=== PATIENT | male | born 1945 | race Caucasian/White ===

== ENCOUNTER 2018-05-10 14:24 | Inpatient (IN) | payer MEDICARE ==
[~2018-05-10] VITALS: Ht 185.4 cm; Wt 73.5 kg
[2018-05-10 15:24] LABS: BASOPHILS % 0.3 % (0.0-1.0); EOSINOPHILS % 0.2 % (0.0-6.0); HEMATOCRIT 45.1 % (38.2-49.6); HEMOGLOBIN 14.7 g/dL (14.0-18.0); LYMPHOCYTES # (AUTO) 1.7 (1.0-3.2); LYMPHOCYTES % 19.4 % (18.0-39.1); MEAN CORPUSCULAR HEMOGLOBIN 29.8 pg (28-32); MEAN CORPUSCULAR HGB CONC 32.6 g/dL (31-35); MEAN CORPUSCULAR VOLUME 91.3 fL (81-99); MONOCYTES # (AUTO) 1.8 (0.2-0.8); NEUTROPHILS # (AUTO) 5.3 (2.1-6.9); NEUTROPHILS % 59.6 % (38.7-80.0); PLATELET COUNT 143 x10e3/uL (140-360); RED BLOOD COUNT 4.94 x10e6/uL (4.3-5.7); RED CELL DISTRIBUTION WIDTH 13.9 % (11.7-14.4)
[2018-05-10 15:30] LABS: INR 1.07; PROTHROMBIN TIME 14.4 seconds (11.9-14.5)
[2018-05-10 15:31] LABS: PARTIAL THROMBOPLASTIN TIME 32.3 seconds (23.8-35.5)
[2018-05-10 15:42] LABS: ALBUMIN 3.6 g/dL (3.5-5.0); ALBUMIN/GLOBULIN RATIO 0.8 (0.8-2.0); ANION GAP 15.6 mmol/L (8-16); CALCIUM 8.7 mg/dL (8.4-10.2); CREATININE, SERUM 1.81 mg/dL (0.72-1.25); POTASSIUM 3.6 mmol/L (3.5-5.1)
[2018-05-10 15:53] LABS: BILIRUBIN,URINE NEGATIVE (NEGATIVE); CLARITY,URINE SL CLOUDY (CLEAR); COLOR,URINE YELLOW (YELLOW); KETONES,URINE NEGATIVE (NEGATIVE); LEUKOCYTE ESTERASE ,URINE NEGATIVE (NEGATIVE); NITRITE,URINE NEGATIVE (NEGATIVE); PROTEIN,URINE DIPSTICK 2+ (NEGATIVE); URINE UROBILINOGEN 1 mg/dL (0.2 - 1)
[2018-05-10] MEDS ORDERED: ASPIRIN325 MG PO (16:06)
[2018-05-10 16:08] LABS: BACTERIA,URINE MODERATE /HPF; EPITHELIAL CELLS,URINE FEW /LPF
[2018-05-10 16:11] LABS: CREATINE KINASE MB 1.3 ng/mL (0-5.0)
--- NOTE | 2018-05-10 16:12 | Diagnostic Imaging Report ---
Examination: Single AP view of the chest. COMPARISON: None. INDICATION: Chest pain DISCUSSION: Lines/tubes: None. Lungs: The lungs are well inflated and clear. There is no evidence of pneumonia or pulmonary edema. Pleura: There is no pleural effusion or pneumothorax. Heart and mediastinum: The heart and the mediastinum are unremarkable. Bones and soft tissues: No acute bony abnormalities. Probable healed fracture deformity of the left clavicle. IMPRESSION: 1. No acute cardiopulmonary abnormalities. Signed by: Dr. Issa Dubon M.D. on 05/10/2018 4:08 PM
[2018-05-10] MEDS ORDERED: SODIUM CHLORIDE 0.9% 1000ML 1,000 ML IV SCH (16:30)
[2018-05-10] MEDS ORDERED: SIMVASTATIN80 MG PO (17:45)
[2018-05-10] MEDS ORDERED: LOSARTAN POTASS25 MG PO (17:45)
[2018-05-10] MEDS ORDERED: BROMFED DM COU118 ML PO (17:45)
[2018-05-10] MEDS ORDERED: METOPROLOL TART50 MG PO (17:45)
[2018-05-10] MEDS ORDERED: OMEPRAZOLE40 MG PO (17:45)
[2018-05-10] MEDS ORDERED: ONDANSETRON HCL INJ 2MG/ML 2ML 2 MG/ML VIAL IV PRN (18:15)
--- OUTSIDE RECORDS SUMMARY | 2018-05-10 18:20 | XMS REPORT ---
Author Author [facility] Address Unknown Phone Unavailable Care Team Providers Care Pictures Editor Name Role Phone Gregorio NICOLE Unavailable Unavailable Problems This patient has no known problems. Allergies, Adverse Reactions, Alerts This patient has no known allergies or adverse reactions. Medications This patient has no known medications. Results Test Description Test Time Test Comments Text Results Atomic Results Result Comments CHEST SINGLE (PORTABLE) 2018-05-10 16:07:00 [place] [address] Patient Name: JEANIE ASN MR #: [id number] : 1945 Age/Sex: 72/M Req #: [id number] Adm Physician: Ordered by: JERRELL NICOLE MD Report #: [id number] Location: ER Room/Bed: Procedure: [id number] DX/CHEST SINGLE (PORTABLE) Exam Date: 05/10/18 Exam Time: 1520 REPORT STATUS: Signed Examination: Single AP view of the chest. COMPAR MERI: None. INDICATION: Chest pain DISCUSSION: Lines/tubes: None. Lungs: The lungs are well inflated and clear. There is no evidence of pneumonia or pulmonary edema. Pleura: There is no pleural effusion or pneumothorax. Heart and mediastinum: The heart and the mediastinum are unremarkable. Bones and soft tissues: No acute bony abnormalities. Probable healed fracture deformity of the left clavicle. IMPRESSION: 1. No acute cardiopulmonary abnormalities. Signed by: Dr. Rosetta Dubon M.D. on 05/10/2018 4:08 PM Dictated By: ROSETTA DUBON MD Transcribed By: DIANA on 05/10/181607 COPY TO: JERRELL NICOLE MD
[2018-05-10] MEDS: SODIUM CHLORIDE 0.9% 1000ML 1,000 ML IV SCH (18:30)
[2018-05-10] MEDS ORDERED: ASPIRIN 81 MG CHEW TAB PO ONE (18:30)
--- NOTE | 2018-05-10 19:00 | NUR ---
PT AWAKE ALERT SKIN W/D RESP NONLAB, NAD NOTED. DENIES COMPLAINTS AT THIS TIME
--- NOTE | 2018-05-10 19:08 | NUR ---
Walking rounds with TAMMIE Holder. Patient in no distress at this time.
[2018-05-10 20:39] VITALS: BP 159/83
[2018-05-10 21:26] VITALS: BP 159/83
[2018-05-10 22:12] VITALS: BP 159/83
--- NOTE | 2018-05-10 23:04 | NUR ---
SPOKE TO DR. WARE AT THIS TIME REGARDING PT HEART RHYTHM FROM NSR TO AFIB WITH RATE OF 127. BP 155/80. NEW ORDERS RCV.
[2018-05-10] MEDS ORDERED: PSEUDOEPHEDRINE PO PRN (23:15)
[2018-05-10] MEDS ORDERED: BROMPHENIRAMINE PO PRN (23:15)
[2018-05-10] MEDS ORDERED: METOPROLOL TARTRATE INJ 1 MG/ML VIAL IV ONE (23:15)
[2018-05-10] MEDS: METOPROLOL TARTRATE 25 MG TAB PO SCH (23:15)
[2018-05-10] MEDS ORDERED: DEXTROMETHORPHAN PO PRN (23:15)
[2018-05-10 23:48] VITALS: BP 142/80
[2018-05-11] VITALS (8 sets, daily range): BP systolic 132–173; BP diastolic 72–83
[2018-05-11 00:28] LABS: CREATINE KINASE MB 1.6 ng/mL (0-5.0)
[2018-05-11] MEDS: SODIUM CHLORIDE 0.9% 1000ML 1,000 ML IV SCH ×3 (03:33→18:07)
[2018-05-11] MEDS: METOPROLOL TARTRATE 25 MG TAB PO SCH ×3 (06:09→21:33)
--- NOTE | 2018-05-11 06:41 | NUR ---
SPOKE TO DR. WARE AT THIS TIME REGARDING PT C/O COUGH. NEW ORDERS FOR COUGH MEDS AND CONSULT TO DR. LIAO FOR AFIB.
[2018-05-11 06:55] LABS: BASOPHILS % 0.5 % (0.0-1.0); EOSINOPHILS # (AUTO) 0.1 (0.0-0.4); EOSINOPHILS % 1.8 % (0.0-6.0); LYMPHOCYTES # (AUTO) 1.3 (1.0-3.2); LYMPHOCYTES % 28.5 % (18.0-39.1); MEAN CORPUSCULAR HEMOGLOBIN 29.3 pg (28-32); MEAN CORPUSCULAR HGB CONC 32.4 g/dL (31-35); MEAN CORPUSCULAR VOLUME 90.7 fL (81-99); MONOCYTES # (AUTO) 0.8 (0.2-0.8); MONOCYTES % 18.1 % (4.4-11.3); NEUTROPHILS # (AUTO) 2.3 (2.1-6.9); NEUTROPHILS % 50.9 % (38.7-80.0); RED BLOOD COUNT 3.75 x10e6/uL (4.3-5.7); RED CELL DISTRIBUTION WIDTH 13.9 % (11.7-14.4)
[2018-05-11] MEDS ORDERED: GUAIFENESIN/DEXTROMETHORPHAN LIQD 5 ML UDC PO PRN (07:00)
[2018-05-11 07:04] LABS: PLATELET COUNT 103 x10e3/uL (140-360)
--- NOTE | 2018-05-11 07:31 | NUR ---
History and PHysical cc: weak/sob HPI: 72yoM, PCP , developed sob/weakness. Stated on losartan in 02/2018, coughing since then, now with low BP SBP 60-70. Bolused fluids and admitted for mgmt. Continues to smoke 1ppd cigs. 10 pound unintentional weight loss. PMH: Current smoker, HTn, CAD s/p stent 1998, TIA PSHx: hip replaceent Allergies; see emr Fh/Sh; ;; no etoh; 1ppd cigs Meds; see MAR ROS; no f/c/s/N/V/D/SCOTT/vision changes/skin rash v/s; rev'd PE: tired appearing anicteric ns1s2 mod bs soft nt nd no e/t a&ox3; tyrese flat affect labs/meds; revd A/P: 72yoM Hypotension- drug induced? New A.fib with RVR Acute rhabdomyolysis GERD SUDHAKAR Current smoker CAD with hx stent 1998 PLAN stop losartan Fluids BB echo/cardio consult Will need CT chest in current smoker with weight loss- wait for renal fn to improve; clark Mehta MD, PhD.
[2018-05-11 07:46] LABS: ANION GAP 9.4 mmol/L (8-16); CALCIUM 7.4 mg/dL (8.4-10.2); CREATININE, SERUM 1.29 mg/dL (0.72-1.25); POTASSIUM 3.4 mmol/L (3.5-5.1)
[2018-05-11 07:56] LABS: CREATINE KINASE MB 2.5 ng/mL (0-5.0)
[2018-05-11] MEDS: PANTOPRAZOLE SOD 40 MG TABEC PO SCH (10:14)
[2018-05-11] MEDS: ASPIRIN 325 MG TAB PO SCH (10:14)
--- NOTE | 2018-05-11 10:28 | NUR ---
telemetry notified nurse pt ran 6 beat of vtach, pt stable at this time, denies chest pains will notifiy .
[2018-05-11] MEDS: BENZONATATE 100 MG CAP PO SCH ×2 (13:17→21:33)
--- NOTE | 2018-05-11 14:29 | Consultation ---
DATE OF CONSULTATION: 05/11/2018 Cardiology Consultation REASON FOR CONSULTATION: Atrial fibrillation. HISTORY OF PRESENT ILLNESS: This is a 72-year-old man with history of coronary artery disease with prior stent in 1998, hypertension, and history of TIA, who presents with complaints of shortness of breath and weakness. The patient reports he has had a cough for the last month. Four days ago, he began having shortness of breath and weakness for which he presented to the ER for further evaluation. He denied any fever or chills. He also denied chest pain, palpitations, orthopnea, or PND. The patient presented to Urgent Care for evaluation, he was found to be hypotensive and sent to [facility] ER for further evaluation. In the ER, he was found to have acute injury and UA suggestive of UTI for which he was admitted for further evaluation. REVIEW OF SYSTEMS: Negative except as per HPI. PAST MEDICAL HISTORY: 1. Coronary artery disease with prior stent in 1998. 2. Hypertension. 3. Hyperlipidemia. 4. History of TIA. PAST SURGICAL HISTORY: Right hip replacement. ALLERGIES: PLEASE SEE EMR. MEDICATIONS: Please see medication list. SOCIAL HISTORY: He smokes a pack and half a day for the last 50 years. No alcohol or illicit drugs. FAMILY HISTORY: Denies. PHYSICAL EXAMINATION: VITAL SIGNS: Temperature 98.2 degrees, pulse 71, respiratory rate 19, blood pressure 157/83, and oxygen saturation 92% on room air. GENERAL: Awake, alert, well developed, well nourished, in no acute distress. HEENT: Normocephalic and atraumatic. Pupils equal. No scleral icterus. NECK: Supple. No thyromegaly or cervical lymphadenopathy. No carotid bruits. LUNGS: Poor air movement, but no wheezes or crackles. CARDIOVASCULAR: Normal rate, regular rhythm. No murmur. Normal S1 and S2. ABDOMEN: Soft, nontender. EXTREMITIES: No edema. NEUROLOGIC: Nonfocal exam. LABORATORY DATA: Sodium 139, potassium 3.4, chloride 108, CO2 of 25, BUN 20, and creatinine 1.29. Troponin 0.041. BNP 93. Cholesterol 114, triglycerides 138, LDL 63, HDL 23. WBC 4.42, hemoglobin 11, hematocrit 34, and platelets 103. Chest x-ray, no acute cardiopulmonary abnormalities. Telemetry, normal sinus rhythm. EKG; sinus rhythm, ST abnormality, possible digitalis effect. IMPRESSION: 1. Episode of atrial fibrillation with rapid ventricular response reported overnight. We will review the telemetry images. 2. Acute kidney injury. 3. Abnormal UA suggestive of urinary tract infection. 4. Hypotension. 5. Tobacco abuse. 6. Coronary artery disease with prior stent in 1998. 7. Hypertension. 8. History of transient ischemic attack. RECOMMENDATIONS: 1. The patient's blood pressure is now elevated with cessation of losartan, hold for now given SUDHAKAR. I agree with fluids. Obtain echocardiogram. Check TSH. We will monitor on telemetry. We will review telemetry strips of the event overnight. 2. Further recommendations pending test results. Thank you for this consult. We will continue to follow. Marian Candelaria MD ABS/MODL /[id number]
[2018-05-11 16:04] LABS: CREATINE KINASE MB 2.9 ng/mL (0-5.0)
[2018-05-11] MEDS: SIMVASTATIN 80 MG TAB PO SCH (21:32)
--- NOTE | 2018-05-11 23:05 | NUR ---
paged dr su re: telemetry run of vtach awaiting call back
--- NOTE | 2018-05-11 23:16 | NUR ---
spoke with Dr. Sykes re: vtach run, no new orders at this time, informed nurse to monitor patient and notify md if future runs of vtach occur
[2018-05-12] VITALS: BP 161/79
[2018-05-12 04:00] VITALS: BP 165/76
[2018-05-12] MEDS: SODIUM CHLORIDE 0.9% 1000ML 1,000 ML IV SCH ×3 (06:27→23:47)
[2018-05-12] MEDS: BENZONATATE 100 MG CAP PO SCH ×3 (06:28→20:48)
[2018-05-12] MEDS: METOPROLOL TARTRATE 25 MG TAB PO SCH ×3 (06:28→20:48)
--- NOTE | 2018-05-12 07:00 | NUR ---
BEDSIDE ROUNDING DONE. PT RESTING QUIETLY EASILY AROUSED. NO DISTRESS NOTED.
[2018-05-12 07:51] VITALS: BP 156/71
[2018-05-12] MEDS: ASPIRIN 325 MG TAB PO SCH (09:00)
[2018-05-12] MEDS: PANTOPRAZOLE SOD 40 MG TABEC PO SCH (09:00)
--- NOTE | 2018-05-12 09:36 | NUR ---
IM- progress note O/N; no events ROS; no f/c/s/N/V/D/SCOTT/vision changes/skin rash v/s; rev'd PE: tired appearing anicteric ns1s2 mod bs soft nt nd no e/t a&ox3; tyrese flat affect labs/meds; revd A/P: 72yoM Hypotension- drug induced? New A.fib with RVR Acute rhabdomyolysis GERD SUDHAKAR Current smoker CAD with hx stent 1998 PLAN stop losartan Fluids BB echo/cardio consult Will need CT chest in current smoker with weight loss- wait for renal fn to improve; pepcid 05/12 titrate BB up. reduce fluids. f/u echo. Rayray Mehta MD, PhD.
[2018-05-12 10:13] LABS: ANION GAP 7.3 mmol/L (8-16); BLOOD UREA NITROGEN 14 mg/dL (7-26); BUN/CREATININE RATIO 14 (6-25); CALCIUM 7.5 mg/dL (8.4-10.2); CARBON DIOXIDE 26 mmol/L (22-29); CHLORIDE 106 mmol/L (98-107); CREATININE, SERUM 0.97 mg/dL (0.72-1.25); EST GLOMERULAR FILTRATION RATE > 60 ML/MIN (60-); GLUCOSE 158 mg/dL (74-118); POTASSIUM 3.3 mmol/L (3.5-5.1); SODIUM 136 mmol/L (136-145)
[2018-05-12 11:32] VITALS: BP 126/66
[2018-05-12 15:33] VITALS: BP 130/60
--- NOTE | 2018-05-12 15:57 | Progress Note ---
DATE: 05/12/2018 Cardiology Progress Note SUBJECTIVE: The patient denies chest pain or shortness of breath. OBJECTIVE: VITAL SIGNS: Temperature 98.8 degrees, pulse 64, respiratory rate 19, blood pressure 156/71, oxygen saturation 97%. GENERAL: Awake, alert, in no acute distress. LUNGS: Clear to auscultation bilaterally. No wheezes or crackles. CARDIOVASCULAR: Normal rate, regular rhythm. No murmur. Normal S1, S2. ABDOMEN: Soft, nontender. EXTREMITIES: No edema. CARDIAC MEDICATIONS: Aspirin 325 mg p.o. daily, simvastatin 80 mg p.o. at bedtime, metoprolol tartrate 75 mg p.o. q.12 hours. LABORATORY DATA: Sodium 136, potassium 3.3, chloride 106, CO2 of 26, BUN 14, creatinine 0.97. TELEMETRY: Normal sinus rhythm. PVCs. IMPRESSION: 1. Paroxysmal atrial fibrillation with rapid ventricular response, currently sinus rhythm. 2. Acute kidney injury, improved. 3. Coronary artery disease with prior stent in 1998. 4. Hypertension. 5. History of transient ischemic attack. 6. Tobacco abuse. RECOMMENDATIONS: Noted increase in metoprolol tartrate. The patient's blood pressure has for the most part been elevated, we will monitor closely. As the patient's renal function has improved, resume losartan if the patient remains hypertensive. Discuss indication for anticoagulation for CVA prophylaxis in the setting of atrial fibrillation including warfarin versus direct oral anticoagulant. We will start Eliquis if echocardiogram is unremarkable. Keep the patient on telemetry. Thank you for this consult. We will continue to follow. Marian Candelaria MD [facility]/MODL /[id number]
[2018-05-12] MEDS ORDERED: IOPAMIDOL 370 MG/ML 200 ML INFUS..BTL INJ ONE (18:01)
[2018-05-12] MEDS ORDERED: SODIUM CHLORIDE 0.9% 50ML 50 ML ONE (18:01)
--- NOTE | 2018-05-12 18:06 | Diagnostic Imaging Report ---
CT CHEST WITH CONTRAST HISTORY: COUGH COMPARISON: Chest radiograph May 10, 2018 TECHNIQUE: CT scan of the chest WITH intravenous contrast, using standard protocol. Coronal and sagittal reformats are provided. IV CONTRAST: 100 cc of Isovue-370. RADIATION DOSE: Total DLP: 531.59 mGy*cm Dose modulation, iterative reconstruction, and/or weight based adjustment of the mA/kV was utilized to reduce the radiation dose to as low as reasonably achievable. COMPLICATIONS: None FINDINGS: Lines/tubes: None. Lungs and Airways: Biapical pleural-parenchymal scarring. Mild to moderate mid to upper lung predominant paraseptal and centrilobular emphysema. Mild right lower lobe atelectasis. Diffuse bronchial wall thickening. Pleura: No effusion or pneumothorax. Heart and mediastinum: The thyroid gland is normal. The heart and pericardium are within normal limits. Abdomen: Limited evaluation of the upper abdomen. Numerous bilateral fluid densities and 2 small scattered hypodensities throughout the visualized portions of both kidneys, compatible with multiple cysts, the largest 2.5 cm on the right. Lymph nodes: No pathologically enlarged lymph node identified. Vessels: Scattered atherosclerotic vascular calcifications, including the coronary arteries. Bones: Diffusely decreased mineralization of the osseous structures limits bone detail. Multilevel anterior compression deformities, moderate at T7, moderate at T8, and prominent central at L1. Soft tissues: Unremarkable IMPRESSION: 1. Mild to moderate emphysema and probable chronic bronchitis. 2. Diffuse osseous demineralization and multilevel vertebral compression deformities, compatible with osteoporosis. 3. Coronary atherosclerosis. Signed by: Dr. Pal Krishnan D.O., M.M.M. on 05/12/2018 6:02 PM
[2018-05-12] MEDS: APIXABAN 5 MG TABLET PO SCH (18:21)
--- NOTE | 2018-05-12 19:00 | NUR ---
patient received awake, alert, lying quietly in bed. no c/o pain noted. ivf continue to infuse without difficulty. hob elevated 40 degrees. respirations even and unlabored. 02/2l/nc in use. pm assessment complete. patient instructed to call for assistance when needed.
--- NOTE | 2018-05-12 19:02 | NUR ---
REPORT GIVEN TO ONCOMING NURSE, FOR CONTINUED CARE.
[2018-05-12 20:00] VITALS: BP 143/62
[2018-05-12] MEDS: SIMVASTATIN 80 MG TAB PO SCH (20:48)
[2018-05-12] MEDS ORDERED: Apixaban PO (22:49)
[2018-05-12] MEDS ORDERED: TESSALON PERLE100 MG PO (22:49)
[2018-05-12] MEDS ORDERED: Guaifenesin/Dextromethorphan PO (22:49)
[2018-05-12] MEDS ORDERED: LOPRESSOR25 MG PO (22:49)
--- NOTE | 2018-05-12 22:50 | NUR ---
CT report given to Dr. Mehta per request. patient to discharge home in am.
--- NOTE | 2018-05-12 22:51 | NUR ---
Discharge summary A/P: 72yoM Hypotension- drug induced? New A.fib with RVR Acute rhabdomyolysis GERD SUDHAKAR Current smoker CAD with hx stent 1998 PLAN stop losartan Fluids BB echo/cardio consult Will need CT chest in current smoker with weight loss- wait for renal fn to improve; pepcid 05/12 titrate BB up. reduce fluids. f/u echo. CT shows emphysematous changes and osteoporotic changes of spine. f/u PCP 1 week and 2 weeks d/c home stable d/c>35mins. Rayray Mehta MD, PhD.
[2018-05-13] VITALS (8 sets, daily range): BP systolic 156–193; BP diastolic 68–80
--- NOTE | 2018-05-13 04:54 | NUR ---
Discharge summary A/P: 72yoM Hypotension- drug induced? New A.fib with RVR Acute rhabdomyolysis GERD SUDHAKAR Current smoker CAD with hx stent 1998 PLAN stop losartan Fluids BB echo/cardio consult Will need CT chest in current smoker with weight loss- wait for renal fn to improve; pepcid 05/12 titrate BB up. reduce fluids. f/u echo. CT shows emphysematous changes and osteoporotic changes of spine. 05/13 remained waiting on ride; d/c today. f/u PCP 1 week and 2 weeks d/c home stable d/c>35mins. Rayray Mehta MD, PhD.
--- NOTE | 2018-05-13 05:00 | NUR ---
bp 170/[address] Mehta notified at this time. order received to remove blankets from patients bed and recheck temp in one hour. no further orders noted.
[2018-05-13] MEDS: BENZONATATE 100 MG CAP PO SCH ×3 (05:40→21:22)
[2018-05-13 07:05] LABS: BASOPHILS % 0.2 % (0.0-1.0); EOSINOPHILS # (AUTO) 0.1 (0.0-0.4); HEMATOCRIT 33.8 % (38.2-49.6); HEMOGLOBIN 11.1 g/dL (14.0-18.0); LYMPHOCYTES % 21.8 % (18.0-39.1); MEAN CORPUSCULAR HEMOGLOBIN 29.6 pg (28-32); MEAN CORPUSCULAR HGB CONC 32.8 g/dL (31-35); MEAN CORPUSCULAR VOLUME 90.1 fL (81-99); MONOCYTES # (AUTO) 0.6 (0.2-0.8); MONOCYTES % 12.8 % (4.4-11.3); NEUTROPHILS # (AUTO) 3.1 (2.1-6.9); RED BLOOD COUNT 3.75 x10e6/uL (4.3-5.7); RED CELL DISTRIBUTION WIDTH 13.2 % (11.7-14.4)
--- NOTE | 2018-05-13 07:07 | NUR ---
Answered pt call light and pt request morning lab results.
[2018-05-13 07:25] LABS: ANION GAP 10.3 mmol/L (8-16); BLOOD UREA NITROGEN 11 mg/dL (7-26); BUN/CREATININE RATIO 11 (6-25); CARBON DIOXIDE 23 mmol/L (22-29); CHLORIDE 108 mmol/L (98-107); CREATININE, SERUM 0.96 mg/dL (0.72-1.25); EST GLOMERULAR FILTRATION RATE > 60 ML/MIN (60-); GLUCOSE 98 mg/dL (74-118); POTASSIUM 3.3 mmol/L (3.5-5.1); SODIUM 138 mmol/L (136-145)
--- NOTE | 2018-05-13 07:27 | NUR ---
Report called to TAMMIE Real. Patient to transfer to room 206
--- NOTE | 2018-05-13 07:27 | NUR ---
Rcvd patient in report this am. Patient is awake in bed at this time. No s/s of distress noted.
--- NOTE | 2018-05-13 07:36 | NUR ---
received pt lying in hospital bed, eyes open, no acute distress noted. denies pain. Resp even and unlabored. O2 @2lpm via NC. AAOx4. oriented to room and use of call light, call light placed within reach and instructed to call for assistance.
[2018-05-13 08:15] LABS: RBC MORPHOLOGY COMMENT NORMAL
[2018-05-13 08:16] LABS: PLATELET ESTIMATE SLIGHTLY DECREASED; PLATELET MORPHOLOGY COMMENT MODERATE LARGE
[2018-05-13 08:44] LABS: PLATELET COUNT 89 x10e3/uL (140-360)
[2018-05-13] MEDS: PIPER-TAZ 3.375 GM 50 ML IV SCH ×2 (09:11→17:05)
[2018-05-13] MEDS: METOPROLOL TARTRATE 25 MG TAB PO SCH ×2 (09:12→21:02)
[2018-05-13] MEDS: ASPIRIN 325 MG TAB PO SCH (09:12)
[2018-05-13] MEDS: APIXABAN 5 MG TABLET PO SCH ×2 (09:12→16:09)
[2018-05-13] MEDS: PANTOPRAZOLE SOD 40 MG TABEC PO SCH (09:12)
[2018-05-13] MEDS: SODIUM CHLORIDE 0.9% 1000ML 1,000 ML IV SCH (12:36)
--- NOTE | 2018-05-13 14:08 | Progress Note ---
DATE: 05/13/2018 Cardiology Progress Note SUBJECTIVE: The patient denies chest pain or shortness of breath; however, he states he does not feel good yet. OBJECTIVE: VITAL SIGNS: Temperature 98.3 degrees, pulse 71, respiratory rate 20, blood pressure 156/75, oxygen saturation 96% on 2 L nasal cannula. GENERAL: Awake, alert, in no acute distress. LUNGS: Clear to auscultation bilaterally. No wheezes or crackles. CARDIOVASCULAR: Normal rate, regular rhythm. No murmur. Normal S1, S2. ABDOMEN: Soft, nontender. EXTREMITIES: No edema. CARDIAC MEDICATIONS: Apixaban 5 mg p.o. b.i.d., metoprolol tartrate 75 mg p.o. q.12 hours, aspirin 325 mg p.o. daily, simvastatin 80 mg p.o. q.h.s. LABORATORY DATA: WBC 4.78, hemoglobin 11.1, hematocrit 33.8, platelets 89. Sodium 138, potassium 3.3, chloride 108, CO2 of 23, BUN 11, creatinine 0.96. IMAGING DATA: CT chest; [id number] emphysema and probable chronic bronchitis, diffuse osseous demineralization and multilevel vertebral compression deformities compatible with osteoporosis, and coronary atherosclerosis. TELEMETRY: Normal sinus rhythm. IMPRESSION: 1. Paroxysmal atrial fibrillation with rapid ventricular response, currently sinus rhythm. 2. Acute kidney injury, improved. 3. Coronary artery disease with prior stent in 1998. 4. Hypertension. 5. History of transient ischemic attack. 6. Tobacco abuse. RECOMMENDATIONS: The patient's blood pressure remains elevated, we will continue metoprolol and resume losartan. Continue Eliquis for CVA prophylaxis. We will monitor for signs and symptoms of bleeding. Maintain the patient on telemetry while admitted. Treatment of fever per primary service. Thank you for this consult. We will continue to follow. Marian Candelaria MD ABS/MODL /[id number]
[2018-05-13] MEDS ORDERED: trelegy INH (14:33)
[2018-05-13] MEDS ORDERED: PROAIR HFA INH8.5 GM INH (14:33)
[2018-05-13] MEDS ORDERED: PREDNISONE10 MG PO (14:34)
[2018-05-13] MEDS ORDERED: POTASSIUM CHLORIDE 20 MEQ TAB CR PO STA (14:37)
[2018-05-13] MEDS ORDERED: PREDNISONE 10 MG TAB PO ONE (14:45)
[2018-05-13] MEDS: SIMVASTATIN 80 MG TAB PO SCH (21:02)
[2018-05-14] VITALS (8 sets, daily range): BP systolic 136–161; BP diastolic 62–97
[2018-05-14] MEDS: PIPER-TAZ 3.375 GM 50 ML IV SCH ×3 (01:01→17:45)
[2018-05-14] MEDS: SODIUM CHLORIDE 0.9% 1000ML 1,000 ML IV SCH ×3 (02:29→23:26)
--- NOTE | 2018-05-14 03:46 | Consultation ---
DATE OF CONSULTATION: 05/13/2018 Pulmonary Medicine Consult REASON FOR REFERRAL: Shortness of breath. HISTORY OF PRESENT ILLNESS: Mr. Pichardo is a pleasant 72-year-old gentleman with shortness of breath. The patient was admitted to [facility] under Dr. Rayray Mehta on May 10, 2018. The patient at that time had dizziness and hypotension. The patient with blood pressure 79/64. Creatinine is 1.8. He was admitted for evaluation. Additionally, he was found to have mild rhabdomyolysis with CK 410. BNP level 93. Urine, no large white cells. Chest x-ray was clear. Two days into hospitalization, he had 101.1 temperature maximum. He is having some shortness of breath and I am consulted. No history of asthma. No allergies. Daily GERD. No history of inhalers for any breathing treatment. He is on omeprazole for GERD. CT chest done showing chronic bronchitic pattern, [id number] emphysematous changes. PAST MEDICAL HISTORY: Hypertension, coronary artery disease status post stent in 1998, TIA, hip replacement, GERD. MEDICATIONS: Medication list reviewed per the chart record. ALLERGIES: NO KNOWN DRUG ALLERGIES. FAMILY HISTORY: Noncontributory to this. SOCIAL HISTORY: The patient is . No alcohol. No drugs. He smoked from age 20 to 72 two packs per day. 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 REVIEW OF SYSTEMS: GENERAL: No weight changes. OPHTHALMOLOGIC: No double vision. ENT: No ear ringing. ENDOCRINE: No thyroid disease. PULMONARY: No hemoptysis. CARDIAC: No heart attacks recently. GASTROINTESTINAL: No constipation. GENITOURINARY: No blood in urine. NEUROLOGIC: No seizures. PSYCHIATRIC: No depression. DERMATOLOGIC: No rashes. OBJECTIVE: VITAL SIGNS: Afebrile, vital signs noted and reviewed per the chart record. GENERAL: No acute distress, alert and calm. HEENT: Normocephalic, atraumatic. NECK: Supple. Throat midline. LUNGS: Bilateral air entry, decreased breath sounds moderately. No rhonchi, no rales, no wheezes. CARDIOVASCULAR: S1, S2. No murmurs, rubs, or gallops. ABDOMEN: Soft, nontender. EXTREMITIES: No clubbing, no cyanosis, no edema. INTEGUMENT: No rash. No purpura. LABORATORY DATA: Potassium 3.3. BUN 11, creatinine 0.96. White count 5, hematocrit 34, and platelets 89. IMPRESSION AND PLAN: 1. Chronic obstructive pulmonary disease with mild exacerbation. 2. Daily gastroesophageal reflux disease. 3. Febrile syndrome, not otherwise specified. 4. Admit with possible drug-induced hypotension. 5. Atrial fibrillation with rapid ventricular rate. 6. Acute kidney injury. 7. Current active smoker. 8. History of coronary artery disease, status post stent in 1998. 9. Thrombocytopenia. 10. Mild anemia. 11. Mild hypokalemia. Gave him 1 dose of steroids today. Could have a short burst of low-dose steroids since he is not far from baseline. Bronchodilators. The patient can continue treatment for the chronic bronchitic symptoms. Continue benzonatate. Follow along fever curve and platelets to see if anymore assessment is needed. Smoking cessation is highly recommended. Consider checking an HIV level and LDH. No signs that heparin was given when I reviewed the chart. Follow along closely. Thank you very much, Dr. Mehta, for this consult. Please call for questions. MD TEOFILO Munoz/MODL /[id number]
[2018-05-14 05:27] LABS: BASOPHILS % 0.2 % (0.0-1.0); EOSINOPHILS % 0.2 % (0.0-6.0); HEMATOCRIT 34.5 % (38.2-49.6); HEMOGLOBIN 11.1 g/dL (14.0-18.0); LYMPHOCYTES # (AUTO) 1.2 (1.0-3.2); LYMPHOCYTES % 25.1 % (18.0-39.1); MEAN CORPUSCULAR HEMOGLOBIN 29.4 pg (28-32); MEAN CORPUSCULAR HGB CONC 32.2 g/dL (31-35); MEAN CORPUSCULAR VOLUME 91.5 fL (81-99); MONOCYTES # (AUTO) 0.6 (0.2-0.8); MONOCYTES % 12.8 % (4.4-11.3); NEUTROPHILS % 61.3 % (38.7-80.0); PLATELET COUNT 92 x10e3/uL (140-360); RED BLOOD COUNT 3.77 x10e6/uL (4.3-5.7); RED CELL DISTRIBUTION WIDTH 13.2 % (11.7-14.4)
[2018-05-14] MEDS: BENZONATATE 100 MG CAP PO SCH ×3 (05:48→20:54)
[2018-05-14 06:02] LABS: ALANINE AMINOTRANSFERASE 16 IU/L (0-55); ALBUMIN 2.4 g/dL (3.5-5.0); ALBUMIN/GLOBULIN RATIO 0.7 (0.8-2.0); ALKALINE PHOSPHATASE 64 IU/L (40-150); ANION GAP 11.2 mmol/L (8-16); BLOOD UREA NITROGEN 13 mg/dL (7-26); BUN/CREATININE RATIO 13 (6-25); CALCIUM 7.7 mg/dL (8.4-10.2); CARBON DIOXIDE 25 mmol/L (22-29); CHLORIDE 109 mmol/L (98-107); CREATININE, SERUM 1.03 mg/dL (0.72-1.25); EST GLOMERULAR FILTRATION RATE > 60 ML/MIN (60-); GLUCOSE 93 mg/dL (74-118); LIPASE 40 U/L (8-78); PHOSPHORUS 3.4 MG/DL (2.3-4.7); POTASSIUM 4.2 mmol/L (3.5-5.1); SODIUM 141 mmol/L (136-145)
[2018-05-14 06:07] LABS: MAGNESIUM 1.1 MG/DL (1.3-2.1)
--- NOTE | 2018-05-14 06:31 | NUR ---
CALLED DR WARE AND NOTIFY FOR MAGNESIUM CRITICAL RESULT. NEW ORDER RECEIVED.
[2018-05-14] MEDS ORDERED: MAGNESIUM SULFATE 2GM/50ML 50 ML IV ONE (07:00)
[2018-05-14 07:35] LABS: HIV 1&2 AB SCREEN NON-REACTIVE (NONREACTIVE)
[2018-05-14] MEDS: ASPIRIN 325 MG TAB PO SCH (09:38)
[2018-05-14] MEDS: METOPROLOL TARTRATE 25 MG TAB PO SCH ×2 (09:39→20:54)
[2018-05-14] MEDS: APIXABAN 5 MG TABLET PO SCH ×2 (09:39→17:45)
[2018-05-14] MEDS: PANTOPRAZOLE SOD 40 MG TABEC PO SCH (09:39)
[2018-05-14] MEDS: LOSARTAN POTASSIUM 25 MG TAB PO SCH (09:39)
[2018-05-14 10:51] LABS: CLARITY,URINE HAZY (CLEAR); COLOR,URINE YELLOW (YELLOW); LEUKOCYTE ESTERASE ,URINE NEGATIVE (NEGATIVE)
[2018-05-14 10:52] LABS: BACTERIA,URINE MODERATE /HPF; BILIRUBIN,URINE NEGATIVE (NEGATIVE); EPITHELIAL CELLS,URINE FEW /LPF; KETONES,URINE TRACE (NEGATIVE); NITRITE,URINE NEGATIVE (NEGATIVE); PROTEIN,URINE DIPSTICK 2+ (NEGATIVE); RBC,URINE >50 /HPF (0-5); URINE UROBILINOGEN 1 mg/dL (0.2 - 1)
--- NOTE | 2018-05-14 14:12 | NUR ---
IM- progress note O/N; no events ROS; no f/c/s/N/V/D/SCOTT/vision changes/skin rash v/s; rev'd PE: tired appearing anicteric ns1s2 mod bs soft nt nd no e/t a&ox3; tyrese flat affect labs/meds; revd A/P: 72yoM Hypotension- drug induced? New A.fib with RVR Acute rhabdomyolysis GERD SUDHAKAR Current smoker CAD with hx stent 1998 PLAN stop losartan Fluids BB echo/cardio consult Will need CT chest in current smoker with weight loss- wait for renal fn to improve; pepcid 05/12 titrate BB up. reduce fluids. f/u echo. 05/13 fever; d/c cancelled; cultured. 05/14 f/u cultures; no further fevers; Developed diarrhea- check C.diff; use genna Mehta MD, PhD.
[2018-05-14] MEDS: TIOTROPIUM 18 MCG INH POWDER INH SCH (17:00)
--- NOTE | 2018-05-14 17:12 | Progress Note ---
DATE: I am covering for Dr. Dias today. SUBJECTIVE: The patient has no fevers. He still complains of mild dyspnea. He has some mild cough. OBJECTIVE: VITAL SIGNS: The patient is afebrile. The blood pressure is 161/70, saturation is 97%, the pulse is 51. HEENT: Shows no facial swelling or erythema. The nasal mucosa is normal. The oropharynx is normal. LYMPHATIC: Shows no submandibular, cervical, or supraclavicular adenopathy. CARDIAC: Reveals a regular rate and rhythm with normal S1 and S2. There are no murmurs or rubs. LUNGS: Auscultation of lungs reveals a prolonged expiratory phase bilaterally. There is some wheezing. ABDOMEN: Soft, nontender. There is no rebound or guarding. EXTREMITIES: There is no leg edema or calf tenderness. There is no cyanosis or clubbing. LABORATORY DATA: BUN to creatinine ratio is 13 to 1.03. The other electrolytes are within normal limits. The magnesium is 1.1. The white blood cell count is 4.9 and hemoglobin is 11.1. The platelet count is 92. IMPRESSION: 1. Chronic obstructive pulmonary disease with acute exacerbation. 2. Osteoporosis with old compression fractures. 3. Atrial fibrillation with rapid ventricular response. 4. Thrombocytopenia. 5. Anemia, unspecified. 6. Hypomagnesemia. PLAN: 1. The patient will begin Spiriva once a day along with Xopenex through a nebulizer as needed. 2. Continue low-dose prednisone and antibiotics. 3. Await culture results. 4. Continue anticoagulation and rate control for atrial fibrillation. Kleber Pickett MD [facility]/MODL /[id number]
--- NOTE | 2018-05-14 17:38 | Progress Note ---
DATE: 05/14/2018 Cardiology Progress Note SUBJECTIVE: No major events overnight. OBJECTIVE: VITAL SIGNS: Temperature 97.3, pulse 51, respiratory rate 18, blood pressure 161/85, and saturating 97% on 2 L nasal cannula. GENERAL: Awake, alert, in no acute distress. CARDIOVASCULAR: Regular rate and rhythm. No murmurs, rubs, or gallops. LUNGS: Clear to auscultation bilaterally. ABDOMEN: Soft, nontender, and nondistended. NEURO AND PSYCH: Alert and oriented to person, place, and time. Normal affect. CARDIOVASCULAR MEDICATIONS: Reviewed. LABORATORY DATA: Reviewed. IMAGING DATA: Reviewed. TELEMETRY DATA: Shows normal sinus rhythm. ASSESSMENT AND PLAN: 1. Paroxysmal atrial fibrillation with rapid ventricular response, currently in sinus rhythm. 2. Acute kidney injury. 3. Coronary artery disease with stents in 1998. 4. Hypertension. 5. History of transient ischemic attack. 6. Tobacco abuse. RECOMMENDATIONS: We will continue to up titrate blood pressure medicines to better control blood pressure. Continue Eliquis. Thank you for this consult. We will continue to follow. MD RAVEN FelizP/MODL /[id number]
[2018-05-14] MEDS: LEVALBUTEROL HCL SOLN NEBU 0.63 MG/3 ML NEB INH SCH (19:00)
--- NOTE | 2018-05-14 19:15 | NUR ---
BEDSIDE ROUNDING DONE. PT RESTING QUIETLY EASILY AROUSED. NO DISTRESS NOTED. PATIENT REPORTED NO PAIN. RN INSTRUCTED PATIENT TO BE COLLECT BM. VERBALIZED UNDERSTANDING.
[2018-05-14] MEDS: METRONIDAZOLE 500MG/NS 100ML 100 ML IV SCH (20:54)
[2018-05-14] MEDS: SIMVASTATIN 80 MG TAB PO SCH (20:54)
[2018-05-15] VITALS (9 sets, daily range): BP systolic 131–166; BP diastolic 68–84
[2018-05-15] MEDS: PIPER-TAZ 3.375 GM 50 ML IV SCH ×3 (00:58→16:35)
[2018-05-15] MEDS: LEVALBUTEROL HCL SOLN NEBU 0.63 MG/3 ML NEB INH SCH ×4 (01:00→20:02)
[2018-05-15] MEDS: BENZONATATE 100 MG CAP PO SCH ×3 (06:05→21:15)
[2018-05-15] MEDS: METRONIDAZOLE 500MG/NS 100ML 100 ML IV SCH ×3 (06:05→21:15)
--- NOTE | 2018-05-15 07:06 | NUR ---
IM- progress note O/N; no events ROS; no f/c/s/N/V/D/SCOTT/vision changes/skin rash v/s; rev'd PE: tired appearing anicteric ns1s2 mod bs soft nt nd no e/t a&ox3; tyrese flat affect labs/meds; revd A/P: 72yoM Hypotension- drug induced? New A.fib with RVR Acute rhabdomyolysis GERD SUDHAKAR Current smoker CAD with hx stent 1998 PLAN stop losartan Fluids BB echo/cardio consult Will need CT chest in current smoker with weight loss- wait for renal fn to improve; pepcid 05/12 titrate BB up. reduce fluids. f/u echo. 05/13 fever; d/c cancelled; cultured. 05/14 f/u cultures; no further fevers; Developed diarrhea- check C.diff; use flagyl 05/15 f/u c.diff. Rayray Mehta MD, PhD.
[2018-05-15] MEDS: TIOTROPIUM 18 MCG INH POWDER INH SCH (07:28)
--- NOTE | 2018-05-15 07:34 | NUR ---
Received patient in report this morning. Patient is awake and oriented. No pain, SOB, distress, or S&S reported at this time. O2 running at 2L via NC. Bed locked in lowest position, call light in reach, patient instructed to call if he needs anything.
[2018-05-15] MEDS: ASPIRIN 325 MG TAB PO SCH (09:15)
[2018-05-15] MEDS: METOPROLOL TARTRATE 25 MG TAB PO SCH ×2 (09:16→21:00)
[2018-05-15] MEDS: LOSARTAN POTASSIUM 25 MG TAB PO SCH (09:16)
[2018-05-15] MEDS: APIXABAN 5 MG TABLET PO SCH ×2 (09:16→16:35)
[2018-05-15] MEDS: PANTOPRAZOLE SOD 40 MG TABEC PO SCH (09:17)
--- NOTE | 2018-05-15 09:17 | NUR ---
Patient laying in bed, A&Ox3. Speech clear. Previous SOB reported when patient got up to toilet. Relieved upon sitting down. Lung sounds clear, patient coughed upon deep breath, no sputum produced. Patient reports slight generalized pain, reports it is his baseline. Skin intact, warm, and dry. Sensation intact. Bowel sounds active. Patient reports having another loose stool this morning since the stool specimen was collected. Patient got up to sit in chair as per instructions from doctor. No distress noted. Call light in reach, personal belongings close, instructed to call if needs help.
--- NOTE | 2018-05-15 12:11 | Progress Note ---
DATE: SUBJECTIVE: The patient notes some improvement with the nebulizer. He has less dyspnea and less cough. He still has some diarrhea. PHYSICAL EXAMINATION: VITAL SIGNS: The patient is afebrile. The blood pressure is 166/84 and the saturation is 98%. Respiratory rate is 18 and the pulse is 63. HEENT: Shows no facial swelling or erythema. CARDIAC: Reveals regular rate and rhythm with normal S1 and S2. LUNGS: Auscultation of lungs reveals clear breath sounds bilaterally. There is no wheezing. ABDOMEN: Soft, nontender. There is no rebound or guarding. EXTREMITIES: Show no leg edema or calf tenderness. There is no cyanosis or clubbing. SKIN: Shows no rashes. NEUROLOGICAL: Shows no focal abnormalities. IMPRESSION: 1. Chronic obstructive pulmonary disease with acute exacerbation. 2. Atrial fibrillation with rapid ventricular response. 3. Thrombocytopenia. 4. Anemia. PLAN: 1. Continue Spiriva daily. 2. Continue bronchodilators through the nebulizer. 3. Low-dose prednisone and antibiotics. 4. Continue current treatment for atrial fibrillation. MD OCTAVIANO Payan/STEPHANIE /[id number]
--- NOTE | 2018-05-15 12:42 | NUR ---
Provided patient with requested barrier cream for bottom d/t frequent loose stool. Reports 3 loose stools so far today. Still awaiting stool culture results to r/o cdiff.
[2018-05-15] MEDS: SODIUM CHLORIDE 0.9% 1000ML 1,000 ML IV SCH (16:35)
--- NOTE | 2018-05-15 17:03 | Progress Note ---
DATE: 05/15/2018 Cardiology Progress Note SUBJECTIVE: No major events overnight. OBJECTIVE: VITAL SIGNS: Temperature 97.7, pulse 63, respiratory rate 18, blood pressure 131/71, saturating 98% on nasal cannula. GENERAL: Awake, alert, in no acute distress. CARDIOVASCULAR: Regular rate and rhythm. No murmurs, rubs, or gallops. LUNGS: Clear to auscultation bilaterally. ABDOMEN: Soft, nontender, and nondistended. NEURO AND PSYCH: Alert and oriented to person, place, and time. Normal affect. CARDIOVASCULAR MEDICATIONS: Reviewed. LABORATORY DATA: Reviewed. IMAGING DATA: Reviewed. TELEMETRY DATA: Shows normal sinus rhythm. ASSESSMENT: 1. Paroxysmal atrial fibrillation with rapid ventricular response, currently in sinus rhythm. 2. Acute kidney injury. 3. Coronary artery disease, status post stent in 1998. 4. Hypertension. 5. History of transient ischemic attack. 6. Tobacco abuse. RECOMMENDATIONS: Heart and rate and blood pressure are now well controlled. Continue Eliquis. The patient is okay to be discharged home from cardiovascular standpoint. Thank you for this consult. We will continue to follow. MD HUMBERTO Feliz/STEPHANIE /[id number]
[2018-05-15] MEDS: SIMVASTATIN 80 MG TAB PO SCH (21:15)
[2018-05-16] MEDS: PIPER-TAZ 3.375 GM 50 ML IV SCH ×2 (00:03→09:00)
[2018-05-16 00:10] VITALS: BP 148/68
--- NOTE | 2018-05-16 01:22 | NUR ---
Bedside shift performed. RN performed comprehensive assessment on the patient. Patient is not in distress. Patient reported no pain but is coughing. Patient would like to take cough medicine to remedy the problem. Addendum: 05/16/18 at 0124 by Edwin Azevedo RN Document for 05/15/2018 1915
[2018-05-16] MEDS: LEVALBUTEROL HCL SOLN NEBU 0.63 MG/3 ML NEB INH SCH ×3 (01:52→13:00)
[2018-05-16 04:00] VITALS: BP 142/66
[2018-05-16] MEDS: BENZONATATE 100 MG CAP PO SCH (05:12)
[2018-05-16] MEDS: METRONIDAZOLE 500MG/NS 100ML 100 ML IV SCH (05:12)
--- NOTE | 2018-05-16 07:20 | NUR ---
pt alert resp even and unlabored at this time no distress noted, pt able to make needs known, call light in reach.
[2018-05-16 07:40] VITALS: BP 141/73
[2018-05-16 07:55] VITALS: BP 141/73
[2018-05-16] MEDS: APIXABAN 5 MG TABLET PO SCH (09:00)
[2018-05-16] MEDS: ASPIRIN 325 MG TAB PO SCH (09:00)
[2018-05-16] MEDS: LOSARTAN POTASSIUM 25 MG TAB PO SCH (09:00)
[2018-05-16] MEDS: PANTOPRAZOLE SOD 40 MG TABEC PO SCH (09:00)
[2018-05-16] MEDS: METOPROLOL TARTRATE 25 MG TAB PO SCH (09:00)
[2018-05-16] MEDS: SODIUM CHLORIDE 0.9% 1000ML 1,000 ML IV SCH (09:02)
[2018-05-16] MEDS: TIOTROPIUM 18 MCG INH POWDER INH SCH (10:42)
[2018-05-16] MEDS ORDERED: MAGNESIUM OXIDE 400 MG TAB PO ONE (11:45)
[2018-05-16 12:13] VITALS: BP 151/79
--- NOTE | 2018-05-16 12:38 | NUR ---
Discharge summary IM- progress note O/N; no events ROS; no f/c/s/N/V/D/SCOTT/vision changes/skin rash v/s; rev'd PE: tired appearing anicteric ns1s2 mod bs soft nt nd no e/t a&ox3; tyrese flat affect labs/meds; revd A/P: 72yoM Hypotension- drug induced? New A.fib with RVR Acute rhabdomyolysis GERD SUDHAKAR Current smoker CAD with hx stent 1998 PLAN stop losartan Fluids BB echo/cardio consult Will need CT chest in current smoker with weight loss- wait for renal fn to improve; pepcid 05/12 titrate BB up. reduce fluids. f/u echo. 05/13 fever; d/c cancelled; cultured. 05/14 f/u cultures; no further fevers; Developed diarrhea- check C.diff; use flagyl 05/15 f/u c.diff. Negative d/c home Stable f/u PCP 1 week, 1 week, 2 weeks, 1-2 weeks d/c >35mins Rayray Mehta MD, PhD.
[2018-05-16] MEDS ORDERED: ONDANSETRON HCL 4 MG ORAL DISINTEGRATING TAB PO PRN (13:45)
--- NOTE | 2018-05-16 13:52 | Progress Note ---
DATE: 05/16/2018 Pulmonary Medicine Progress Note SUBJECTIVE: Mr. Pichardo was seen and examined at bedside. He continues with slow improvement. The patient's vital signs were grossly stable. 100% oxygen saturation. 2 L/minute nasal cannula oxygen. 2.5 L in, 1.7 L out. Five bowel movements. REVIEW OF SYSTEMS: No bleeding, no headaches. OBJECTIVE: VITAL SIGNS: Afebrile, vital signs noted per the chart record. GENERAL: No acute distress. Alert and calm in bed. HEENT: Normocephalic, atraumatic. NECK: Supple. Throat midline. LUNGS: Bilateral air entry, decreased breath sounds, rare rhonchi. CARDIOVASCULAR: S1, S2. No murmurs, rubs, or gallops. ABDOMEN: Soft, nontender. EXTREMITIES: No clubbing, no cyanosis, no edema. INTEGUMENT: No rash or purpura. LABORATORY DATA: 1.1 magnesium, 4.2 potassium, 1.0 creatinine. IMPRESSION AND PLAN: 1. Probable chronic obstructive pulmonary disease with mild exacerbation. 2. Gastroesophageal reflux disease, significant. 3. Febrile syndrome, not otherwise specified. Possible viral syndrome/infection. 4. Coronary artery disease. 5. Hypertension. 6. Admit with drug-induced hypotension, mild rhabdomyolysis. 7. Atrial fibrillation with rapid rate. Continue mobilizing the patient. Bronchodilators. Reasonable for antibiotics to be continued for his bronchitic symptoms. However, short course of antibiotics should ensue from a pulmonary point of view as there is no benjamin pneumonia. Follow along closely. Give some magnesium. Home oxygen evaluation. MD TEOFILO Munoz/MODL /[id number]
== END 2018-05-16 14:57 | disposition home or self-care (01) | DRG 309 ==
LOC: ER 14:24 → ERHOLD 18:17 → MED/SURG 20:29 → OBSVTOIN 05-13 06:38 → MED/SURG2 05-13 07:34
PROVIDERS: ADMIT Internal Medicine; ATTEND Internal Medicine
DX: I48.0 Paroxysmal atrial fibrillation (principal); M62.82 Rhabdomyolysis; J44.1 Chronic obstructive pulmonary disease with (acute) exacerbation; N17.9 Acute kidney failure, unspecified; N39.0 Urinary tract infection, site not specified; I95.2 Hypotension due to drugs; I10 Essential (primary) hypertension; E78.5 Hyperlipidemia, unspecified; K21.9 Gastro-esophageal reflux disease without esophagitis; I25.10 Atherosclerotic heart disease of native coronary artery without angina pectoris; Z95.5 Presence of coronary angioplasty implant and graft; Z86.73 Personal history of transient ischemic attack (TIA), and cerebral infarction without residual deficits; F17.210 Nicotine dependence, cigarettes, uncomplicated; E87.6 Hypokalemia; D64.9 Anemia, unspecified; B34.9 Viral infection, unspecified; D69.6 Thrombocytopenia, unspecified; M81.0 Age-related osteoporosis without current pathological fracture; Z87.310 Personal history of (healed) osteoporosis fracture; E83.42 Hypomagnesemia
CPT/HCPCS: 36415; 71045; 71260; 80048; 80053; 80061; 81001; 82550; 82553; 83615; 83690; 83735; 83880; 84100; 84443; 84484; 85025; 85379; 85610; 85730; 87040; 87086; 87390; 87400; 87493; 93005; 93306; 94640; 94664; 96361; 97139; 99284; G0378; G0433; G0435; J2543; J3475; J7030; J7512; Q9967